=== PATIENT | male | born 1970 | race Caucasian/White ===

== ENCOUNTER 2020-01-02 15:37 | Emergency (ER) | payer BC ==
[2020-01-02] MEDS ORDERED: IPRATROPIUM/ALBUTEROL 3 ML VIAL NEB ONE (15:51)
[2020-01-02] MEDS ORDERED: HYDROmorphone HCL INJ 2 MG/ML VIAL IV ONE ×2 (15:51→18:00)
[2020-01-02 16:06] VITALS: TEMP 98.6
--- NOTE | 2020-01-02 16:17 | RAD ---
Procedure: XR ABDOMEN SUPINE AND ERECT WITH CHEST (ABD ACUTE SERIES) Exam Date: 01/02/2020 Ordering Provider: Landon Colon Clinical Indication: abd pain, wheezing Comparison: None Findings: Upright chest x-ray: Cardiomediastinal silhouette is unremarkable. Pulmonary vasculature is unremarkable. There is no consolidation or effusion. No pneumothorax. Flat and upright abdomen: Nonobstructive bowel gas pattern. There is no pneumoperitoneum. 5 mm density just to the right of the L3 vertebral body could be within the bowel, a right ureteral stone not completely excluded. Otherwise, no suspicious calcifications identified. No acute osseous abnormalities. Impression: 1. 5 mm density just to the right of the L3 vertebral body could be within the bowel, a right ureteral stone not completely excluded. This can be further evaluated with CT renal stone if clinically indicated. Electronically signed by: Padilla Woodruff MD 01/02/2020 4:15 PM CDT
[2020-01-02] MEDS ORDERED: PIPERACILLIN/TAZOBACTAM 3.375 GM in SODIUM CHLORIDE 0.9% 100ML 100 ML IVPB ONE (16:24)
--- NOTE | 2020-01-02 17:51 | CT ---
EXAM DESCRIPTION: Abdomen/Pelvis w/Contrast RadLex: CT ABDOMEN PELVIS WITH IV CONTRAST CLINICAL HISTORY: 49 years Male; severe diffuse abd pain 3 days, MAIN TECHNIQUE: CT of the abdomen and pelvis using intravenous contrast. All CT scans at this facility use dose modulation, iterative reconstruction, and/or weight based dosing when appropriate to reduce radiation dose to as low as reasonably achievable. COMPARISON: None. FINDINGS: Chest: Partially visualized lung bases are clear. Abdomen/Pelvis: Liver:The liver is normal in size and contour. There is no focal hepatic abnormality. No intrahepatic bile duct dilatation. Gallbladder:The gallbladder is not overly distended. It has a normal thin wall. No gallstones are present. The common bile duct is nondilated. Pancreas:Within normal limits Spleen:Normal size. No abnormality. Right kidney:No hydronephrosis. No focal lesion. Left kidney:No hydronephrosis. No focal lesion. Adrenal glands:Within normal limits Vascular structures:Abdominal aorta is normal in caliber. Lymph nodes: No enlarged nodes. Bowel: The stomach is not distended. There is no bowel obstruction. There is extensive thickening and inflammation of an approximately 10 cm segment of sigmoid colon. Colonic diverticula are present in this location. There is perforation, with scattered foci of free air. There is haziness of the mesentery consistent with inflammation. There is a small volume of free fluid within the pelvis. No rim-enhancing fluid collection to indicate abscess. The adjacent distal ileum is mildly hyperemic and thickened. However, this is felt to be most likely reactive, secondary to the adjacent inflammation. Bones: No acute bone findings. Lumbar spine and pelvic bones are normal in appearance. Bladder: Unremarkable. Pelvis: No pelvic mass or adenopathy. IMPRESSION: Sigmoid diverticulitis with perforation. No abscess at this time. Free intraperitoneal air is present. Electronically signed by: Tyrone Morrissey MD 01/02/2020 5:49 PM CDT
--- NOTE | 2020-01-02 18:59 | ED.PDOC ---
History of Present Illness - General Chief Complaint: Abdominal Pain Stated Complaint: ABD pain, difficulty breathing Time Seen by Provider: 01/02/20 15:41 Source: patient Exam Limitations: no limitations - History of Present Illness Initial Comments: The patient is a 49-year-old male presents emergency room after 4 days of progressive increasing abdominal pain. Pain started he thinks in the left lower quadrant but now it is generalized. He does have guarding and rebound. He does have peritoneal signs. He has had a couple of episodes of nausea and vomiting. He is only passing a small amount of stool. He has not had a good appetite for several days. He does not know if he has had any fevers but he thinks he has. The patient does have what is likely undiagnosed mild COPD. He does have a few scattered wheezes currently. Timing/Duration: other - 3 to 4 days Severity: severe Improving Factors: immobilization Worsening Factors: eating, movement Associated Symptoms: diaphoresis, malaise, nausea/vomiting, shortness of breath Allergies/Adverse Reactions: Allergies NO KNOWN ALLERGY Allergy (Verified 01/02/20 16:09) Home Medications: Ambulatory Orders Albuterol Inhaler [Ventolin Hfa Inhaler] 2 puff INH Q4H PRN #1 inh 01/02/20 Review of Systems - Review of Systems Constitutional: States: malaise EENTM: States: no symptoms reported Respiratory: States: short of breath, wheezing Cardiology: States: no symptoms reported Gastrointestinal/Abdominal: States: abdominal pain, nausea, vomiting Genitourinary: States: no symptoms reported Musculoskeletal: States: no symptoms reported Skin: States: no symptoms reported Neurological: States: no symptoms reported Endocrine: States: no symptoms reported Hematologic/Lymphatic: States: no symptoms reported All other Systems: No Change from Baseline Past Medical History (General) - Patient Medical History Hx Seizures: No Hx Stroke: No Hx Dementia: No Hx Asthma: No Hx of COPD: No Hx Cardiac Disorders: No Hx Congestive Heart Failure: No Hx Pacemaker: No Hx Hypertension: No Hx Thyroid Disease: No Hx Diabetes: No Hx Gastroesophageal Reflux: No Hx Renal Disease: No Hx Cancer: No Hx of HIV: No Hx Hepatitis C: No Hx MRSA: No Surgical History: no surgical history - Vaccination History Hx Influenza Vaccination: No - Social History Hx Tobacco Use: Yes Hx Alcohol Use: No Family Medical History - Family History Mother Family History: Unknown Living Status: Unknown Physical Exam - Physical Exam General Appearance: Alert, Obvious distress, Ill Appearing Eye Exam: bilateral normal Ears, Nose, Throat: hearing grossly normal, normal ENT inspection Neck: full range of motion, supple Respiratory: no respiratory distress, no accessory muscle use, wheezing Cardiovascular/Chest: normal peripheral pulses, regular rate, rhythm - Borderline sinus tachycardia, no edema Peripheral Pulses: radial,right: 2+, radial,left: 2+ Gastrointestinal/Abdominal: guarding, rebound, tenderness Rectal Exam: deferred Back Exam: no CVA tenderness, no vertebral tenderness Extremity: normal range of motion, non-tender, normal inspection, no pedal edema, normal capillary refill Neurologic: rod hanger II-XII nml as tested, alert, normal mood/affect, oriented x 3 Skin Exam: normal color Comments: Vital Signs - 24 hr 01/02/20 01/02/20 01/02/20 15:56 16:06 17:00 Temperature 98.6 F Pulse Rate 98 H Pulse Rate [ 106 H 108 H Left Radial] Respiratory 26 H 20 22 Rate Blood Pressure 133/98 130/89 [Left Arm] O2 Sat by Pulse 96 98 92 L Oximetry 01/02/20 01/02/20 01/02/20 17:08 18:00 19:00 Temperature Pulse Rate Pulse Rate [ 106 H 102 H 99 H Left Radial] Respiratory 26 H 20 16 Rate Blood Pressure 133/86 128/100 [Left Arm] O2 Sat by Pulse 91 L 94 L Oximetry Progress - Progress Progress: The patient is a 49-year-old male presented emergency room with abdominal pain due to perforated sigmoid diverticulitis without definite abscess formation. Blood cultures have been done and the patient has been started on Zosyn. He has received 2 doses of pain medications. The patient is being transferred to [facility] for possible surgical intervention, as surgical services are not offered here on the weekends. Additionally the patient did appear to be in a mild COPD exacerbation upon arrival here. He did respond positively to a breathing treatment. Consideration could be given to doing a rapid coronavirus test on the patient upon arrival, though coinfection is unlikely. acceptance is appreciated. arabella torrez [phone] 01/02/20 19:07 - Results/Orders Results/Orders: Laboratory Tests 01/02/20 01/02/20 01/02/20 16:00 16:00 16:00 WBC 21.9 H* RBC 5.09 Hgb 16.6 Hct 46.2 MCV 90.8 MCH 32.5 H MCHC 35.9 RDW 13.2 Plt Count 249 MPV 8.1 Absolute Neuts (auto) Not Reportable Absolute Lymphs (auto) Not Reportable Absolute Monos (auto) Not Reportable Absolute Eos (auto) Not Reportable Neutrophils % Not Reportable Neutrophils % (Manual) 75.0 Lymphocytes % Not Reportable Lymphocytes % (Manual) 11.0 Monocytes % Not Reportable Monocytes % (Manual) 8.0 Eosinophils % Not Reportable Basophils % Not Reportable Band Neutrophils 4.0 H Eosinophils 2.0 Platelet Estimate Normal Normal RBC Morphology Normal rbc morph PT 11.5 H INR 1.16 H PTT (SP) 29.4 D-Dimer, Quantitative 2290 H* Sodium 131 L Potassium 4.1 Chloride 98 L Carbon Dioxide 22 Anion Gap 15.1 BUN 15 Creatinine 0.90 BUN/Creatinine Ratio 16.7 Random Glucose 116 H Serum Osmolality 264.5 L Lactic Acid Calcium 8.8 Magnesium 2.0 Total Bilirubin 1.7 H AST 15 ALT 12 Alkaline Phosphatase 46 Creatine Kinase 62 CK-MB (CK-2) 1.8 CK-MB (CK-2) % Not Reportable Troponin I < 0.02 B-Natriuretic Peptide 15.4 Serum Total Protein 7.4 Albumin 4.0 Globulin 3.4 Albumin/Globulin Ratio 1.2 Amylase 24 L Lipase 26 Urine Color Urine Appearance Urine pH Ur Specific [place] Urine Protein Urine Glucose (UA) Urine Ketones Urine Blood Urine Nitrite Urine Bilirubin Urine Urobilinogen Ur Leukocyte Esterase Urine RBC Urine WBC Ur Epithelial Cells Urine Bacteria Urine Mucus 01/02/20 01/02/20 16:13 16:53 WBC RBC Hgb Hct MCV MCH MCHC RDW Plt Count MPV Absolute Neuts (auto) Absolute Lymphs (auto) Absolute Monos (auto) Absolute Eos (auto) Neutrophils % Neutrophils % (Manual) Lymphocytes % Lymphocytes % (Manual) Monocytes % Monocytes % (Manual) Eosinophils % Basophils % Band Neutrophils Eosinophils Platelet Estimate Normal RBC Morphology PT INR PTT (SP) D-Dimer, Quantitative Sodium Potassium Chloride Carbon Dioxide Anion Gap BUN Creatinine BUN/Creatinine Ratio Random Glucose Serum Osmolality Lactic Acid 1.1 Calcium Magnesium Total Bilirubin AST ALT Alkaline Phosphatase Creatine Kinase CK-MB (CK-2) CK-MB (CK-2) % Troponin I B-Natriuretic Peptide Serum Total Protein Albumin Globulin Albumin/Globulin Ratio Amylase Lipase Urine Color Radha Urine Appearance Clear Urine pH 5.5 Ur Specific [place] >= 1.030 Urine Protein 100 H Urine Glucose (UA) Negative Urine Ketones 40 H Urine Blood Small H Urine Nitrite Positive H Urine Bilirubin Moderate Urine Urobilinogen 1.0 Ur Leukocyte Esterase Negative Urine RBC 1-3 Urine WBC 0 Ur Epithelial Cells 0-1 Urine Bacteria Rare Urine Mucus Large EKG shows sinus tachycardia 104 bpm. Somewhat low amplitude in anterior leads. No definitive ST segment or T wave changes indicative of acute ischemia. Normal R wave progression. Questionable early left anterior fascicular block. Questionable early right bundle block. Normal QT interval. Chest x-ray shows no acute pathology. CT scan of the abdomen pelvis with IV contrast shows what appears to be perforated sigmoid diverticulitis. See report for details. - EKG/XRAY/CT CT Ordered: Yes Departure - Departure Clinical Impression: Perforation of sigmoid colon due to diverticulitis, COPD with exacerbation Disposition: Transfer to Hospital Condition: Poor Departure Forms: ED Discharge - Pt. Copy, Patient Portal Self Enrollment Referrals: Paradise Engel FNP [Primary Care Provider] - 1-2 Weeks Prescriptions: Albuterol Inhaler [Ventolin Hfa Inhaler] 2 puff INH Q4H PRN #1 inh PRN Reason: Shortness Of Breath Home Medications: Ambulatory Orders Albuterol Inhaler [Ventolin Hfa Inhaler] 2 puff INH Q4H PRN #1 inh 01/02/20 Transfer to Outside Facility - Transfer Information Decision to Transfer Date: 01/02/20 Decision to Transfer Time: 19:07 Reason for Transfer: required specialist not available Accepting Provider:: dr nathan clark Accepting Facility: [facility]
[2020-01-02 19:02] VITALS: BP 128/100; O2SAT 94
[2020-01-02] MEDS ORDERED: HYDROmorphone HCL INJ 2 MG/ML VIAL ONE (19:45)
== END 2020-01-02 19:42 | disposition short-term general hospital (02) ==
LOC: ER 15:37
DX: K57.20 Diverticulitis of large intestine with perforation and abscess without bleeding (principal); J44.1 Chronic obstructive pulmonary disease with (acute) exacerbation; R11.2 Nausea with vomiting, unspecified
CPT/HCPCS: 36415; 74019; 74177; 80053; 81001; 82150; 82550; 82553; 83605; 83690; 83735; 83880; 84484; 85025; 85379; 85610; 85730; 87040; 87086; 93005; 94640; 94760; J1170; J2543; J7050; J7620

== ENCOUNTER → 2020-01-13 | Outpatient (CLI) | payer BC ==
--- NOTE | 2020-01-13 09:25 | CT ---
EXAM DESCRIPTION: Abdomen/Pelvis w/Contrast CLINICAL HISTORY: 49 years Male, PERFORATED DIVETICULITIS COMPARISON: CT abdomen pelvis dated 01/02/2020. TECHNIQUE: Contiguous 3 mm axial images were obtained from the lung bases to the level of the proximal femora after the administration of intravenous and oral contrast. Sagittal and coronal reconstructions were reviewed. FINDINGS: THORAX: The imaged lower thorax demonstrates no gross abnormality. LIVER: The liver demonstrates normal size and density with no intrahepatic biliary ductal dilatation or focal masses. GALLBLADDER: Grossly unremarkable. PANCREAS: Appears normal with no cystic or solid lesions. SPLEEN: Normal ADRENAL GLANDS: Normal with no nodules or masses. KIDNEYS: Both kidneys enhance symmetrically with no hydronephrosis or nephrolithiasis or perinephric fluid collections. No focal masses are identified. The visualized ureters appear grossly unremarkable. STOMACH: Not well distended limiting detailed evaluation. SMALL BOWEL: The small bowel loops demonstrate variable degrees of distention with no abnormal dilatation or other signs to suggest bowel obstruction. LARGE BOWEL: Numerous diverticula are noted throughout the visualized colon. Significant circumferential wall thickening of the descending and sigmoid colon is identified. 3.6 x 2 cm small pocket of fluid with oral contrast is identified along the right side of the proximal sigmoid colon, situated between the small bowel loops. This is concerning for abscess from perforation. The appendix is well-visualized and appears normal Large amount of free intraperitoneal air is noted in the interim. A drainage catheter is identified with the tip noted beneath the level of the pocket of air. No significant free intraperitoneal fluid. RETROPERITONEUM: The abdominal aorta is nonaneurysmal with moderate atherosclerosis. The inferior vena cava is normal in size and caliber. No abnormally enlarged retroperitoneal lymph nodes are identified. URINARY BLADDER:The urinary bladder is well-distended with no gross abnormality. The prostate gland demonstrates few calcifications. Seminal vesicles appear normal. ADDITIONAL FINDINGS: None. BONES: Mild degenerative changes are identified in the visualized bones.No evidence of osteophytic or osteoblastic lesions. IMPRESSION: 1. Changes of diverticulitis of the sigmoid colon are again identified. 3.6 x 2 cm small pocket of fluid with oral contrast is identified along the right side of the proximal sigmoid colon, situated between the small bowel loops. This is concerning for abscess from perforation. 2. Large amount of free intraperitoneal air is noted in the interim. A drainage catheter is identified with the tip noted beneath the level of the pocket of air. Findings were discussed with Dr. Lee on 01/13/2020 at 9:25 AM. This exam was performed according to our departmental dose-optimization program, which includes automated exposure control, adjustment of the mA and/or kV according to patient size and/or use of iterative reconstruction technique. Electronically signed by: Olena Walsh MD 01/13/2020 9:24 AM CDT
== END ==
LOC: CT 07:53
PROVIDERS: ATTEND Surgery Trauma Surgery
DX: K57.20 Diverticulitis of large intestine with perforation and abscess without bleeding (principal); Z97.8 Presence of other specified devices

== ENCOUNTER → 2020-01-27 | Outpatient (CLI) | payer BC ==
--- NOTE | 2020-01-28 09:01 | CT ---
EXAM DESCRIPTION: Abdomen/Pelvis w/Contrast: Computed Tomography. CLINICAL HISTORY: 49 years Male PERFORATED DIVERTICULITIS COMPARISON: None. TECHNIQUE: Spiral-axial scans at 5 x 5 mm intervals through the abdomen and pelvis, after nonionic IV contrast with water soluble oral contrast. Coronal and sagittal 2.0 mm reconstructions. No delayed scans. No adverse reactions. Total Exam DLP: 549 mGy-cm. This exam was performed according to our departmental dose-optimization program which includes automated exposure control, adjustment of the mA and/or kV according to patient size and/or use of iterative reconstruction technique; to reduce radiation dose to as low as reasonably achievable (ALARA). FINDINGS: Lung bases and pleura: Subpleural groundglass 5 mm nodule lateral left lower lobe Liver, Stomach, Spleen, Adrenal Glands: Long axis right hepatic lobe 17.1 cm. No focal lesions with smooth capsule. Minimal oral contrast in the stomach. No negative and other solid organs unremarkable. Pancreas, Gallbladder, Ducts: Questionable wall thickening gallbladder. Pancreas and duct negative. Tip of drainage catheter is abutting the medial inferior capsule of the liver and just inferior to the fundus of the gallbladder. No fluid collection abutting the tip or distal tube. Kidneys and Ureters: Negative. Mesentery: Stranding and fascial thickening inferiorly around the proximal and mid sigmoid colon with small pockets of free air. Free air also abutting the right abdominal wall at the level of the terminal ileum and upper right pelvis. Free air also within the diastases of the umbilicus. Largest pocket of free air is in the inferior mediastinal epicardial fat pad and anterior to the left lobe of the liver. Again seen is abscess cavity containing oral contrast and fluid posterior to the drainage tube and on the right lateral aspect of the involved sigmoid colon. The inferior edge of this collection is extending to the level of the right hip joint. Decreased in size since the prior study.. Aorta: Stable moderate atherosclerotic changes inferior half more than superior half. Small Bowel: Contains oral contrast with wall thickening distally. Thickening more distally abutting the previously described abscess, continuing to the terminal ileum. No obstruction. Terminal Ileum/Cecum: Minimal wall thickening of the TI, containing oral contrast with no obstruction. Oral contrast in the cecum with no wall thickening. Appendix not seen. Colon: Contains oral contrast. Multiple diverticula distally with thickened wall in the proximal and mid sigmoid at the site of prior perforation. No obstruction. Rectum dilated by fecal matter and oral contrast. Pelvic Organs: Minimal fascial thickening but no free fluid. Stable organs. Spine and Bony Pelvis: Minimal arthrosis hip Joints stable Abdominal Wall/Back Soft Tissues: Free air within the umbilical diastases as discussed previously described but no bowel. IMPRESSION: 1. Status post diverticulitis sigmoid colon with perforation and abscess formation. Thickened gutierrez of the sigmoid colon and narrowed lumen but no obstruction. Free intraperitoneal air in the abdomen and pelvis. Largest collection or free air is in the anterior mediastinum abutting the epicardial fat and extending posterior to the upper abdominal wall but decreased in size since the prior study. The abscess is decreased in size since the prior study. Drainage tube passes anterior to the abscess cavity with the tip abutting the inferior gallbladder and liver. No fluid around the distal drainage catheter or tip. Electronically signed by: Tyrone Richardson MD 01/28/2020 8:59 AM CDT
== END ==
LOC: CT 08:15
PROVIDERS: ATTEND Surgery Trauma Surgery
DX: K57.20 Diverticulitis of large intestine with perforation and abscess without bleeding (principal)

== ENCOUNTER 2020-06-07 03:29 | Emergency (ER) | payer BC ==
[2020-06-07] MEDS ORDERED: ALUM & MAG HYDROX-SIMETHICONE 30 ML, LIDOCAINE VISCOUS 2% 15 ML PO ONE ×2 (03:37)
[2020-06-07] MEDS ORDERED: ONDANSETRON ODT 8 MG TAB SL ONE (03:37)
[2020-06-07 03:50] VITALS: TEMP 97.5
--- NOTE | 2020-06-07 03:53 | ED.PDOC ---
History of Present Illness - General Chief Complaint: General Time Seen by Provider: 06/07/20 03:36 Source: patient Exam Limitations: no limitations - History of Present Illness Initial Comments: The patient is a 49-year-old male presenting to the emergency room secondary to symptoms of reflux with substernal chest discomfort and acid washing back up in his throat. He has felt weak and clammy. He has had some mild nausea. He has had some body aches. All of this started around midnight tonight, approximately 4 hours ago. No definite fevers. No diarrhea. No shortness of breath. Patient is definitely anxious. The patient had surgery for perforated diverticulitis about 4 months ago. Additionally the patient stop smoking this week. Timing/Duration: 4-6 hours Severity: moderate Improving Factors: nothing Worsening Factors: nothing Associated Symptoms: chest pain, headaches, malaise, nausea/vomiting Allergies/Adverse Reactions: Allergies NO KNOWN ALLERGY Allergy (Verified 01/02/20 16:09) Home Medications: Ambulatory Orders Albuterol Inhaler [Ventolin Hfa Inhaler] 2 puff INH Q4H PRN #1 inh 01/02/20 Famotidine [Pepcid Tab] 20 mg PO BID #60 tab 06/07/20 Ondansetron Odt [Zofran ODT] 4 mg PO Q8HR PRN #5 tab 06/07/20 Sucralfate Tab [Carafate Tab] 1 gm PO QID #120 tab 06/07/20 Review of Systems - Review of Systems Constitutional: States: malaise EENTM: States: no symptoms reported Respiratory: States: no symptoms reported Cardiology: States: chest pain Gastrointestinal/Abdominal: States: nausea Genitourinary: States: no symptoms reported Musculoskeletal: States: back pain - Chronic Skin: States: no symptoms reported Neurological: States: anxiety Endocrine: States: no symptoms reported All other Systems: No Change from Baseline Past Medical History (General) - Patient Medical History Hx Seizures: No Hx Stroke: No Hx Dementia: No Hx Asthma: No Hx of COPD: No Hx Cardiac Disorders: No Hx Congestive Heart Failure: No Hx Pacemaker: No Hx Hypertension: No Hx Thyroid Disease: No Hx Diabetes: No Hx Gastroesophageal Reflux: No Hx Renal Disease: No Hx Cancer: No Hx of HIV: No Hx Hepatitis C: No Hx MRSA: No Surgical History: other - Vaccination History Hx Influenza Vaccination: No - Social History Hx Tobacco Use: Yes Hx Alcohol Use: No - Female History Patient is a Female of Child Bearing Age (10 -59 yrs old): No Patient : No Family Medical History - Family History Mother Family History: Unknown Living Status: Unknown Physical Exam - Physical Exam General Appearance: Alert, Anxious Eye Exam: bilateral normal Ears, Nose, Throat: hearing grossly normal, normal ENT inspection Neck: full range of motion, supple Respiratory: lungs clear, normal breath sounds, no respiratory distress, no accessory muscle use Cardiovascular/Chest: normal peripheral pulses, regular rate, rhythm, no edema Peripheral Pulses: radial,right: 2+, radial,left: 2+ Gastrointestinal/Abdominal: non tender - Mild epigastric discomfort to palpation, soft Rectal Exam: deferred Back Exam: other - Mild chronic diffuse low back discomfort to palpation. 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 This is likely flared by his recent smoking cessation. Symptoms did improve significantly with a dose of Zofran and a GI cocktail. Initial laboratory work, EKG and x-rays are reassuring. The patient is being dosed further with famotidine and Carafate. We will plan on repeating a set of cardiac enzymes 3 hours after the first. Continue telemetry monitoring and vital signs monitoring. Continue to monitor symptoms. Coronavirus test is a send out due to shortage of in-house tests. No significant elevation for markers of inflammation often seen with significant coronavirus. He is resting comfortably at this time. [email or web address] torrez [id number] 06/07/20 06:59 Laboratory work is reassuring. The patient did test positive for strep throat and did receive a shot of Bicillin LA. This is likely contributing to his symptoms. He will be written for famotidine and Carafate as well as some Zofran for the next few days. Keep well-hydrated. ER warnings are given. arabella Stephen - Results/Orders Results/Orders: EKG shows normal sinus rhythm at 60 bpm. Possibly a very early mild right bundle branch block. Left anterior fascicular block as determined by mild left axis deviation. Normal QT interval. No ST segment or T wave changes indicative of acute ischemia. Laboratory Tests 06/07/20 06/07/20 06/07/20 04:04 04:04 04:04 WBC 6.3 RBC 4.77 Hgb 15.3 Hct 42.5 MCV 89.1 MCH 32.0 H MCHC 35.9 RDW 13.1 Plt Count 213 MPV 8.3 Absolute Neuts (auto) 3.60 Absolute Lymphs (auto) 1.70 Absolute Monos (auto) 0.60 Absolute Eos (auto) 0.30 Absolute Basos (auto) 0.10 Neutrophils % 57.0 Lymphocytes % 26.8 Monocytes % 10.2 H Eosinophils % 4.7 Basophils % 1.3 PT INR PTT (SP) Fibrinogen D-Dimer, Quantitative Sodium 138 Potassium 3.9 Chloride 102 Carbon Dioxide 28 Anion Gap 11.9 L BUN 18 Creatinine 0.93 BUN/Creatinine Ratio 19.4 Random Glucose 115 H Serum Osmolality 278.5 Calcium 9.2 Total Bilirubin 0.5 AST 18 ALT 17 Alkaline Phosphatase 46 LD Total 91 Creatine Kinase 70 CK-MB (CK-2) 2.0 CK-MB (CK-2) % Not Reportable Troponin I < 0.02 C-Reactive Protein 1.0 B-Natriuretic Peptide 69.0 Serum Total Protein 6.5 Albumin 4.0 Globulin 2.5 Albumin/Globulin Ratio 1.6 Amylase 51 Lipase 49 06/07/20 04:04 WBC RBC Hgb Hct MCV MCH MCHC RDW Plt Count MPV Absolute Neuts (auto) Absolute Lymphs (auto) Absolute Monos (auto) Absolute Eos (auto) Absolute Basos (auto) Neutrophils % Lymphocytes % Monocytes % Eosinophils % Basophils % PT 10.1 INR 1.02 PTT (SP) 24.0 Fibrinogen 180 L D-Dimer, Quantitative < 131.0 L Sodium Potassium Chloride Carbon Dioxide Anion Gap BUN Creatinine BUN/Creatinine Ratio Random Glucose Serum Osmolality Calcium Total Bilirubin AST ALT Alkaline Phosphatase LD Total Creatine Kinase CK-MB (CK-2) CK-MB (CK-2) % Troponin I C-Reactive Protein B-Natriuretic Peptide Serum Total Protein Albumin Globulin Albumin/Globulin Ratio Amylase Lipase Acute abdominal series appears benign. Coronavirus test is a send out. Departure - Departure Clinical Impression: Esophagitis, Strep pharyngitis Nicotine dependence with withdrawal Qualifiers: Nicotine product type: cigarettes Qualified Code(s): F17.213 - Nicotine dependence, cigarettes, with withdrawal Disposition: Discharge to Home or Self Care Condition: Fair Departure Forms: ED Discharge - Pt. Copy, Patient Portal Self Enrollment Instructions: Acid Reflux and GERD in Adults (DC) Diet: bland diet Activity: increase activity as tolerated Referrals: Paradise Engel FNP [Primary Care Provider] - 1-2 Weeks Prescriptions: Ondansetron Odt [Zofran ODT] 4 mg PO Q8HR PRN #5 tab PRN Reason: Nausea--Moderate Sucralfate Tab [Carafate Tab] 1 gm PO QID #120 tab Famotidine [Pepcid Tab] 20 mg PO BID #60 tab Home Medications: Ambulatory Orders Albuterol Inhaler [Ventolin Hfa Inhaler] 2 puff INH Q4H PRN #1 inh 01/02/20 Famotidine [Pepcid Tab] 20 mg PO BID #60 tab 06/07/20 Ondansetron Odt [Zofran ODT] 4 mg PO Q8HR PRN #5 tab 06/07/20 Sucralfate Tab [Carafate Tab] 1 gm PO QID #120 tab 06/07/20 Additional Instructions: The patient is a 49-year-old male presenting with symptoms most consistent with esophagitis. He did test positive for strep throat and was given a dose of Bicillin LA. For the esophagitis he is going to be placed on Carafate and Pepcid. He will also be written for Zofran for as needed use. He needs to continue his smoking cessation. The coronavirus test is a send out and he will be contacted with results. Until he gets the results he does need to avoid contact with outside persons to avoid potential spreading. ER warnings are given for any significant worsening. I do want him to follow back up with his primary care doctor toward the end of the coming week.
--- NOTE | 2020-06-07 04:42 | RAD ---
ABDOMEN SERIES AND CHEST, XR CLINICAL HISTORY. Reflux symptoms. COMPARISON: Chest 01/02/2020. TECHNIQUE: Two views of the abdomen. Single frontal view of the chest FINDINGS: Chest: Heart is normal in size. Normal cardiomediastinal contours. Normal pulmonary vascularity. Clear lungs and pleural spaces. Lungs are hyperinflated. Bones are intact. Abdomen: Scattered air within the small and large bowel. Normal bowel caliber. No free air. Mild vascular calcifications are present in the pelvis. Solid visceral organ shadows appear normal. Unremarkable bony structures. IMPRESSION: 1. Hyperinflation. No acute chest disease. 2. Unremarkable abdomen. Electronically signed by: Nano Arellano DO 06/07/2020 4:40 AM MEDICAL RECORDS ANALYST
[2020-06-07] MEDS ORDERED: SUCRALFATE 1 GM/10 ML 1 GM UD PO ONE (04:49)
[2020-06-07] MEDS ORDERED: FAMOTIDINE 20 MG TAB PO ONE (04:50)
[2020-06-07] MEDS: PENICILLIN BENZATHINE 1.2 MU 1.2 MU/2 ML SYG IM ONE ×3 (05:16→05:40)
[2020-06-07 07:20] VITALS: BP 149/89; O2SAT 96
== END 2020-06-07 07:15 | disposition home or self-care (01) ==
LOC: ER 03:29
DX: J02.0 Streptococcal pharyngitis (principal); K20.90 Esophagitis, unspecified without bleeding; F17.213 Nicotine dependence, cigarettes, with withdrawal; R07.2 Precordial pain; R11.2 Nausea with vomiting, unspecified; R51.9 Headache, unspecified; M54.5 Low back pain; I44.4 Left anterior fascicular block; Z20.828 Contact with and (suspected) exposure to other viral communicable diseases; Z98.890 Other specified postprocedural states; Z79.899 Other long term (current) drug therapy
CPT/HCPCS: 36415; 74019; 80053; 80307; 81001; 82150; 82550; 82553; 82728; 83615; 83690; 83880; 84484; 85025; 85379; 85384; 85610; 85730; 86140; 87635; 87880; 93005; J0561

== ENCOUNTER 2020-08-23 17:57 | Emergency (ER) | payer BC ==
[2020-08-23] MEDS: ONDANSETRON ODT 8 MG TAB SL ONE (18:30)
[2020-08-23] MEDS: ALUM & MAG HYDROX-SIMETHICONE 30 ML, LIDOCAINE VISCOUS 2% 15 ML PO ONE ×2 (18:39)
--- NOTE | 2020-08-23 18:53 | RAD ---
EXAM: XR Chest, 1 View CLINICAL HISTORY: The patient is 49 years old and is Male; chest pain TECHNIQUE: Single upright portable view of the chest. COMPARISON: No relevant prior studies available. FINDINGS: Lungs: Unremarkable. No consolidation. Pleural space: Unremarkable. No pneumothorax. Heart: Unremarkable. No cardiomegaly. Mediastinum: Unremarkable. Bones/joints: No acute fracture visualized. Upper abdomen: No free air in the visualized upper abdomen. IMPRESSION: No acute cardiopulmonary process identified. Electronically signed by: Margarita Fulton MD 08/23/2020 6:51 PM TECHNOLOGY ENGINEER
[2020-08-23] MEDS: NITROGLYCERIN 0.4 MG 25 EA TAB SL ONE (19:15)
[2020-08-23] MEDS: SUCRALFATE 1 GM/10 ML 1 GM UD PO ONE (20:24)
[2020-08-23] MEDS: PANTOPRAZOLE SODIUM IV 40 MG VIAL IV ONE (20:30)
--- NOTE | 2020-08-23 21:58 | ED.PDOC ---
History of Present Illness - General Chief Complaint: Chest Pain/SC Stated Complaint: chest pain and SOB Time Seen by Provider: 08/23/20 17:59 Source: patient Exam Limitations: no limitations - History of Present Illness Initial Comments: The patient is a 49-year-old male presented emergency room secondary to feeling poorly for the last 2 or 3 days. He has had a poor appetite. Bowel movements have not really been regular. No abdominal pain. No fever. He has had some mild nausea but no vomiting. The patient does have a history of significant esophagitis. He was seen for it here a couple of months ago and written for medications which he never got filled. He is having the same vague substernal chest discomfort that he had on the previous episode esophagitis. No syncope or near syncope. No palpitations. No focal chest pain. Chest pain is not any worse with activity or exertion. No shortness of breath associated. It is not positional. The patient reports that he has not eaten anything and has not been hungry at least for the last 24 hours. The patient does initially look mildly intoxicated and indeed his urine drug screen does show marijuana. Timing/Duration: other - 2 to 3 days fairly constant Severity: moderate Improving Factors: nothing Worsening Factors: nothing Associated Symptoms: loss of appetite, malaise, nausea/vomiting Allergies/Adverse Reactions: Allergies NO KNOWN ALLERGY Allergy (Verified 08/23/20 18:21) Home Medications: Ambulatory Orders Famotidine 20 mg PO BID #60 tab 08/23/20 Ondansetron Odt [Zofran ODT] 4 mg PO Q8HR PRN #5 tab 08/23/20 Sucralfate Tab [Carafate Tab] 1 gm PO QID #120 tab 08/23/20 Review of Systems - Review of Systems Constitutional: States: malaise EENTM: States: no symptoms reported Respiratory: States: no symptoms reported Cardiology: States: chest pain Gastrointestinal/Abdominal: States: abdominal pain, constipation - Intermittent, nausea Genitourinary: States: no symptoms reported Musculoskeletal: States: no symptoms reported Skin: States: no symptoms reported Neurological: States: anxiety Endocrine: States: no symptoms reported All other Systems: No Change from Baseline Past Medical History (General) - Patient Medical History Hx Seizures: No Hx Stroke: No Hx Dementia: No Hx Asthma: No Hx of COPD: No Hx Cardiac Disorders: No Hx Congestive Heart Failure: No Hx Pacemaker: No Hx Hypertension: No Hx Thyroid Disease: No Hx Diabetes: No Hx Gastroesophageal Reflux: No Hx Renal Disease: No Hx Cancer: No Hx of HIV: No Hx Hepatitis C: No Hx MRSA: No - Vaccination History Hx Tetanus, Diphtheria Vaccination: No Hx Influenza Vaccination: No Hx Pneumococcal Vaccination: No Immunizations Up to Date: No - Social History Hx Tobacco Use: Yes Hx Alcohol Use: No Hx Substance Use: Yes - marijuana yesterday - Female History Patient is a Female of Child Bearing Age (10 -59 yrs old): No Patient : No Family Medical History - Family History Mother Family History: Unknown Living Status: Unknown Physical Exam - Physical Exam General Appearance: Alert, Anxious - Anxious but still mildly drowsy, No apparent distress Eye Exam: bilateral normal Ears, Nose, Throat: hearing grossly normal, normal pharynx Neck: full range of motion, supple Respiratory: lungs clear, normal breath sounds, no respiratory distress, no accessory muscle use Cardiovascular/Chest: normal peripheral pulses, regular rate, rhythm, no edema Peripheral Pulses: radial,right: 2+, radial,left: 2+ Gastrointestinal/Abdominal: soft, other - Epigastric tenderness to palpation. No rebound or peritoneal signs. No palpable masses. 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, alert, normal mood/affect, oriented x 3 Skin Exam: normal color Comments: Vital Signs - 24 hr 08/23/20 08/23/20 08/23/20 18:13 18:22 18:32 Temperature 98.6 F Pulse Rate 65 Pulse Rate [ 73 56 L Apical] Respiratory 22 20 Rate Blood Pressure 153/113 [Left Arm] O2 Sat by Pulse 97 Oximetry 08/23/20 08/23/20 08/23/20 19:00 20:00 21:00 Temperature Pulse Rate Pulse Rate [ 64 80 63 Apical] Respiratory 16 16 17 Rate Blood Pressure 134/70 135/111 155/96 [Left Arm] O2 Sat by Pulse 98 94 L 96 Oximetry Progress - Progress Progress: 08/23/20 22:01 The patient is a 49-year-old male presented emergency room secondary to several days of feeling poorly with concern for chest discomfort. I believe the patient has a significant gastroenteritis and esophagitis that has flared up on him again. He is going to be written for Carafate and Pepcid to take for the next month. He will also be written for Zofran for as needed use. Laboratory work, chest x-ray and EKG are reassuring at this point from a cardiac standpoint. No significant elevation of the white blood cell count to indicate any recurrence of diverticular issues. Exam is not consistent with that either. The patient does need to avoid alcohol, tobacco, large meals, spicy foods and m arijuana for at least the next few weeks. These can all worsen his intestinal issues. He needs to keep himself well-hydrated. I do want him to follow back up with his primary care doctor later in the week. ER warnings are given. arabella torrez [phone] - Results/Orders Results/Orders: 08/23/20 18:14 EKG shows normal sinus rhythm at 66 bpm. Very mild left axis. Early right bundle branch block. No ST segment or T wave changes indicative of acute ischemia. Normal QT interval. This is consistent with previous EKGs. Chest x-ray shows no acute pathology. Laboratory Results - last 24 hr 08/23/20 08/23/20 08/23/20 18:15 18:15 18:15 WBC 9.0 RBC 4.73 Hgb 14.7 Hct 43.2 MCV 91.4 MCH 31.2 H MCHC 34.1 RDW 12.9 Plt Count 261 MPV 7.9 Absolute Neuts (auto) 6.30 Absolute Lymphs (auto) 1.60 Absolute Monos (auto) 0.70 Absolute Eos (auto) 0.30 Absolute Basos (auto) 0.10 Neutrophils % 70.5 Lymphocytes % 17.5 L Monocytes % 7.3 Eosinophils % 3.9 Basophils % 0.8 PT 10.2 INR 1.03 PTT (SP) 23.9 D-Dimer, Quantitative < 131.0 L Sodium 138 Potassium 4.2 Chloride 99 L Carbon Dioxide 28 Anion Gap 15.2 BUN 12 Creatinine 0.96 BUN/Creatinine Ratio 12.5 Random Glucose 105 Serum Osmolality 275.8 Lactic Acid Calcium 9.3 Magnesium 2.2 Total Bilirubin 0.7 AST 15 ALT 14 Alkaline Phosphatase 46 Creatine Kinase 77 CK-MB (CK-2) 1.5 CK-MB (CK-2) % Not Reportable Troponin I < 0.02 B-Natriuretic Peptide 51.1 Serum Total Protein 7.4 Albumin 4.8 Globulin 2.6 Albumin/Globulin Ratio 1.8 Amylase 49 Lipase 39 Urine Color Urine Appearance Urine pH Ur Specific [place] Urine Protein Urine Glucose (UA) Urine Ketones Urine Blood Urine Nitrite Urine Bilirubin Urine Urobilinogen Ur Leukocyte Esterase Urine RBC Urine WBC Ur Epithelial Cells Urine Bacteria Urine Opiates Screen Urine Barbiturates Ur Phencyclidine Scrn U Amphetamin/Meth Scrn U Benzodiazepines Scrn U Cocaine Metab Screen U Cannabinoids Screen Ethyl Alcohol 08/23/20 08/23/20 08/23/20 18:15 18:15 20:08 WBC RBC Hgb Hct MCV MCH MCHC RDW Plt Count MPV Absolute Neuts (auto) Absolute Lymphs (auto) Absolute Monos (auto) Absolute Eos (auto) Absolute Basos (auto) Neutrophils % Lymphocytes % Monocytes % Eosinophils % Basophils % PT INR PTT (SP) D-Dimer, Quantitative Sodium Potassium Chloride Carbon Dioxide Anion Gap BUN Creatinine BUN/Creatinine Ratio Random Glucose Serum Osmolality Lactic Acid 1.2 Calcium Magnesium Total Bilirubin AST ALT Alkaline Phosphatase Creatine Kinase CK-MB (CK-2) CK-MB (CK-2) % Troponin I B-Natriuretic Peptide Serum Total Protein Albumin Globulin Albumin/Globulin Ratio Amylase Lipase Urine Color Urine Appearance Urine pH Ur Specific [place] Urine Protein Urine Glucose (UA) Urine Ketones Urine Blood Urine Nitrite Urine Bilirubin Urine Urobilinogen Ur Leukocyte Esterase Urine RBC Urine WBC Ur Epithelial Cells Urine Bacteria Urine Opiates Screen Negative Urine Barbiturates Negative Ur Phencyclidine Scrn Negative U Amphetamin/Meth Scrn Negative U Benzodiazepines Scrn Negative U Cocaine Metab Screen Negative U Cannabinoids Screen Positive H Ethyl Alcohol < 5.40 08/23/20 08/23/20 20:08 21:07 WBC RBC Hgb Hct MCV MCH MCHC RDW Plt Count MPV Absolute Neuts (auto) Absolute Lymphs (auto) Absolute Monos (auto) Absolute Eos (auto) Absolute Basos (auto) Neutrophils % Lymphocytes % Monocytes % Eosinophils % Basophils % PT INR PTT (SP) D-Dimer, Quantitative Sodium Potassium Chloride Carbon Dioxide Anion Gap BUN Creatinine BUN/Creatinine Ratio Random Glucose Serum Osmolality Lactic Acid Calcium Magnesium Total Bilirubin AST ALT Alkaline Phosphatase Creatine Kinase 71 CK-MB (CK-2) 1.3 CK-MB (CK-2) % Not Reportable Troponin I < 0.02 B-Natriuretic Peptide Serum Total Protein Albumin Globulin Albumin/Globulin Ratio Amylase Lipase Urine Color Yellow Urine Appearance Clear Urine pH 7.0 Ur Specific [place] 1.015 Urine Protein Negative Urine Glucose (UA) Negative Urine Ketones Negative Urine Blood Negative Urine Nitrite Negative Urine Bilirubin Negative Urine Urobilinogen 0.2 Ur Leukocyte Esterase Negative Urine RBC 0 Urine WBC 0 Ur Epithelial Cells 0 Urine Bacteria 0 Urine Opiates Screen Urine Barbiturates Ur Phencyclidine Scrn U Amphetamin/Meth Scrn U Benzodiazepines Scrn U Cocaine Metab Screen U Cannabinoids Screen Ethyl Alcohol Rapid flu is negative. Departure - Departure Clinical Impression: Gastroenteritis, Chronic esophagitis Disposition: Discharge to Home or Self Care Condition: Fair Departure Forms: ED Discharge - Pt. Copy, Patient Portal Self Enrollment Instructions: DI for Chest Pain, Acid Reflux and GERD in Children (DC), Viral Gastroenteritis, Adult (DC) Diet: bland diet Activity: increase activity as tolerated Referrals: Paradise Engel FNP [Primary Care Provider] - 1-5 Days Prescriptions: Ondansetron Odt [Zofran ODT] 4 mg PO Q8HR PRN #5 tab PRN Reason: Nausea--Moderate Sucralfate Tab [Carafate Tab] 1 gm PO QID #120 tab Famotidine 20 mg PO BID #60 tab Home Medications: Ambulatory Orders Famotidine 20 mg PO BID #60 tab 08/23/20 Ondansetron Odt [Zofran ODT] 4 mg PO Q8HR PRN #5 tab 08/23/20 Sucralfate Tab [Carafate Tab] 1 gm PO QID #120 tab 08/23/20 Additional Instructions: The patient is a 49-year-old male presented emergency room secondary to several days of feeling poorly with concern for chest discomfort. I believe the patient has a significant gastroenteritis and esophagitis that has flared up on him again. He is going to be written for Carafate and Pepcid to take for the next month. He will also be written for Zofran for as needed use. Laboratory work, chest x-ray and EKG are reassuring at this point from a cardiac standpoint. No significant elevation of the white blood cell count to indicate any recurrence of diverticular issues. Exam is not consistent with that either. The patient does need to avoid alcohol, tobacco, large meals, spicy foods and marijuana for at least the next few weeks. These can all worsen his intestinal issues. He needs to keep himself well-hydrated. I do want him to follow back up with his primary care doctor later in the week. He can discuss further with his primary care doctor getting set up with a exercise tolerance test for fur ther risk stratification. ER warnings are given.
[2020-08-23 22:13] VITALS: BP 150/87; O2SAT 94
[2020-08-23 22:15] VITALS: TEMP 98.4
== END 2020-08-23 22:37 | disposition home or self-care (01) ==
LOC: ER 17:57
DX: K52.9 Noninfective gastroenteritis and colitis, unspecified (principal); K20.90 Esophagitis, unspecified without bleeding; R07.2 Precordial pain; I45.10 Unspecified right bundle-branch block; F12.90 Cannabis use, unspecified, uncomplicated; Z20.822 Contact with and (suspected) exposure to COVID-19; Z87.891 Personal history of nicotine dependence